=== PATIENT | male | born 1935 | race Two or more races ===

== ENCOUNTER 2017-05-07 07:27 | Inpatient (IN) | payer SELFPAY ==
[~2017-05-07] VITALS: Ht 180.3 cm; Wt 83.9 kg
[2017-05-07 07:57] LABS: BASO % 1 % (0-3); EOS % 3 % (0-3); HEMATOCRIT 44.1 % (39.0-53.0); HEMOGLOBIN 15.2 g/dL (13.0-17.5); LYMPH # 2.4 x10^3/uL (1.0-4.8); LYMPH % 32 % (24-48); MEAN CORPUSCULAR HEMOGLOBIN 32 pg (25-35); MEAN CORPUSCULAR HGB CONC 34 g/dL (31-37); MEAN CORPUSCULAR VOLUME 93 fL (79-100); MONO % 7 % (0-9); NEUT % 59 % (31-73); PLATELET COUNT 200 x10^3/uL (140-400); RED BLOOD COUNT 4.77 x10^6/uL (4.30-5.70); RED CELL DISTRIBUTION WIDTH 13.8 % (11.5-14.5); WHITE BLOOD COUNT 7.7 x10^3/uL (4.0-11.0)
--- NOTE | 2017-05-07 08:04 | EKG ---
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
[2017-05-07 08:07] LABS: GFR 71.5; POTASSIUM 3.8 mmol/L (3.5-5.1)
[2017-05-07 08:12] LABS: ALBUMIN 3.5 g/dL (3.4-5.0); ALBUMIN/GLOBULIN RATIO 0.9 (1.0-1.7); TOTAL BILIRUBIN 0.5 mg/dL (0.2-1.0); TOTAL PROTEIN 7.2 g/dL (6.4-8.2)
[2017-05-07] MEDS ORDERED: cloNIDine HCL 0.1 MG TABLET PO ONE ×2 (08:15→09:15)
--- NOTE | 2017-05-07 08:27 | RAD ---
Portable chest, 05/07/2017: History: Shortness of breath, chest pain No previous chest radiographs are available at this time for comparison purposes. The heart appears to be at the upper limits of normal in size. There is tortuosity and calcific plaquing of the thoracic aorta. The pulmonary vascularity is normal. A calcified granuloma is present in the left base. No acute infiltrates are seen. Slight blunting of the right lateral costophrenic angle is probably due to scarring or subpleural fat. A small amount of pleural fluid cannot be excluded. There is a mild thoracic scoliosis. IMPRESSION: Borderline cardiomegaly and aortic ectasia.
--- NOTE | 2017-05-07 08:34 | ED.ADGEN ---
Past Medical History Past Medical History: Hypertension Past Surgical History: Appendectomy Alcohol Use: None Drug Use: None Adult General Chief Complaint Chief Complaint: CHEST PAIN HPI HPI Patient is a 81 year old male who presents with chest pressure, mild dyspnea, nausea and headache for the past 3 days. Chest tightness and dyspnea is not worse with exertion, but does wake the patient from sleep on occasion at night. Patient reports occasional cough. Denies fevers chills, sweats. Reports increased peripheral edema. Denies leg pain history of DVT or PE. Patient is on medication for hypertension. Blood pressure is noted to be 180/100. Patient did not take his blood pressure medications this morning. No history of coronary disease. Patient is a nonsmoker. He is accompanied at bedside by family members. Review of Systems Review of Systems ROS as per HPI Current Medications Current Medications Current Medications Medications (Trade) Dose Ordered Sig/Madelin Start Time Stop Time Status Last Admin Dose Admin Clonidine HCl (Catapres) 0.2 mg 1X ONCE 05/07/17 08:15 05/07/17 08:16 DC 05/07/17 08:20 0.2 MG Allergies Allergies Allergies Coded Allergies Type Severity Reaction Last Updated Verified No Known Drug Allergies 05/07/17 No Physical Exam Physical Exam Constitutional: Well developed, well nourished, no acute distress, non-toxic appearance. HENT: Normocephalic, atraumatic, bilateral external ears normal, oropharynx moist, no oral exudates, nose normal. Eyes: PERRLA, EOM. Neck: Normal range of motion, no tenderness, supple. Cardiovascular:Heart rate regular rhythm, no murmur. Lungs & Thorax: Bilateral breath sounds clear to auscultation. Abdomen: Bowel sounds normal, soft, no tenderness. Skin: Warm, dry. Back: No tenderness, no CVA tenderness. Extremities: No tenderness. Neurologic: Alert and oriented X 3, normal motor function, normal sensory function, no focal deficits noted. Psychologic: Affect normal, judgement normal, mood normal. Current Patient Data Vital Signs Vital Signs Date Time Temp Pulse Resp B/P (MAP) Pulse Ox O2 Delivery O2 Flow Rate FiO2 05/07/17 08:20 56 153/91 05/07/17 08:00 97.9 20 96 Room Air 97.9 Lab Values Laboratory Tests Test 05/07/17 07:45 White Blood Count 7.7 x10^3/uL (4.0-11.0) Red Blood Count 4.77 x10^6/uL (4.30-5.70) Hemoglobin 15.2 g/dL (13.0-17.5) Hematocrit 44.1 % (39.0-53.0) Mean Corpuscular Volume 93 fL (79-100) Mean Corpuscular Hemoglobin 32 pg (25-35) Mean Corpuscular Hemoglobin Concent 34 g/dL (31-37) Red Cell Distribution Width 13.8 % (11.5-14.5) Platelet Count 200 x10^3/uL (140-400) Neutrophils (%) (Auto) 59 % (31-73) Lymphocytes (%) (Auto) 32 % (24-48) Monocytes (%) (Auto) 7 % (0-9) Eosinophils (%) (Auto) 3 % (0-3) Basophils (%) (Auto) 1 % (0-3) Neutrophils # (Auto) 4.5 x10^3uL (1.8-7.7) Lymphocytes # (Auto) 2.4 x10^3/uL (1.0-4.8) Monocytes # (Auto) 0.5 x10^3/uL (0.0-1.1) Eosinophils # (Auto) 0.2 x10^3/uL (0.0-0.7) Basophils # (Auto) 0.0 x10^3/uL (0.0-0.2) Sodium Level 143 mmol/L (136-145) Potassium Level 3.8 mmol/L (3.5-5.1) Chloride Level 107 mmol/L (98-107) Carbon Dioxide Level 31 mmol/L (21-32) Anion Gap 5 (6-14) L Blood Urea Nitrogen 15 mg/dL (8-26) Creatinine 1.0 mg/dL (0.7-1.3) Estimated GFR (Cockcroft-Gault) 71.5 BUN/Creatinine Ratio 15 (6-20) Glucose Level 88 mg/dL (70-99) Calcium Level 8.0 mg/dL (8.5-10.1) L Total Bilirubin 0.5 mg/dL (0.2-1.0) Aspartate Amino Transferase (AST) 24 U/L (15-37) Alanine Aminotransferase (ALT) 24 U/L (16-63) Alkaline Phosphatase 99 U/L (46-116) Total Protein 7.2 g/dL (6.4-8.2) Albumin 3.5 g/dL (3.4-5.0) Albumin/Globulin Ratio 0.9 (1.0-1.7) L Lipase 87 U/L (73-393) Laboratory Tests 05/07/17 07:45 Laboratory Tests 05/07/17 07:45 EKG EKG [EKG: Normal sinus rhythm, no acute ST-T wave changes, QTC 434.] Radiology/Procedures Radiology/Procedures [Chest x-ray: Cardiomegaly with aortic ectasia per radiology report] Course & Med Decision Making Course & Med Decision Making Pertinent Labs and Imaging studies reviewed. (See chart for details) [] Dragon Disclaimer Dragon Disclaimer This electronic medical record was generated, in whole or in part, using a voice recognition dictation system. MARII PEREZ DO May 07, 2017 08:33
[2017-05-07 08:49] LABS: BILIRUBIN,URINE NEGATIVE (NEG); GLUCOSE,URINE NEGATIVE (NEG); NITRITE,URINE NEGATIVE (NEG); PH,URINE 7.5; PROTEIN,URINE NEGATIVE (NEG-TRACE)
[2017-05-07 09:05] LABS: BACTERIA,URINE 0 /HPF (0-FEW); RBC,URINE OCC /HPF (0-2); WBC,URINE OCC /HPF (0-4)
[2017-05-07] MEDS ORDERED: fentaNYL PF VIAL 100 MCG/2 ML VIAL IV ONE (09:15)
[2017-05-07] MEDS ORDERED: ONDANSETRON PF 4 MG/2 ML VIAL. IV ONE (09:15)
[2017-05-07] MEDS ORDERED: LISINOPRIL 10 MG TABLET PO ONE (10:00)
[2017-05-07] MEDS ORDERED: ACETAMINOPHEN 500 MG TABLET PO ONE (10:15)
[2017-05-07] MEDS ORDERED: ASPIRIN CHEWABLE 81 MG TABLET. PO ONE (11:15)
--- NOTE | 2017-05-07 11:22 | RAD ---
CT of the head without contrast, 05/07/2017: History: Headache There is moderate cerebral atrophy. The ventricles are within normal limits in size. There is no shift of the midline structures. There is no evidence of acute intracranial hemorrhage or mass effect. IMPRESSION: 1. Cerebral atrophy. 2. No acute intracranial abnormality is detected. PQRS Compliance Statement: One or more of the following individualized dose reduction techniques were utilized for this examination: 1. Automated exposure control 2. Adjustment of the mA and/or kV according to patient size 3. Use of iterative reconstruction technique
--- NOTE | 2017-05-07 11:33 | PDOC1 ---
History and Physical Date of Admission Date of Admission DATE: 05/07/17 TIME: 11:31 Identification/Chief Complaint Chief Complaint CP, GARCIA, SOA, HTN, Vomitting Problems: History of Present Illness History of Present Illness Elderly male presents with CP, GARCIA, SOA, HTN, Vomitting. DW ER doc Will admit for cardiac eval Pt seen and examines Total time 32 minutes Current Problem List Problem List Problems Medical Problems: (1) Accelerated hypertension Status: Acute (2) Chest pain Status: Acute (3) Headache Status: Acute Problems: Current Medications Current Medications Current Medications Clonidine HCl (Catapres) 0.2 mg 1X ONCE PO Last administered on 05/07/17 08: 20; Start 05/07/17 at 08:15; Stop 05/07/17 at 08:16; Status DC Clonidine HCl (Catapres) 0.2 mg 1X ONCE PO ; Start 05/07/17 at 09:15; Stop at 09:16; Status DC Fentanyl Citrate (Fentanyl 2ml Vial) 50 mcg 1X ONCE IV Last administered on 09:16; Start 05/07/17 at 09:15; Stop 05/07/17 at 09:16; Status DC Ondansetron HCl (Zofran) 4 mg 1X ONCE IV Last administered on 05/07/17 09:12 ; Start 05/07/17 at 09:15; Stop 05/07/17 at 09:16; Status DC Lisinopril (Prinivil) 40 mg 1X ONCE PO Last administered on 05/07/17 10:43; Start 05/07/17 at 10:00; Stop 05/07/17 at 10:01; Status DC Acetaminophen (Tylenol) 1,000 mg 1X ONCE PO Last administered on 05/07/17 10: 42; Start 05/07/17 at 10:15; Stop 05/07/17 at 10:16; Status DC Aspirin (Children'S Aspirin) 324 mg 1X ONCE PO ; Start 05/07/17 at 11:15; Stop 05/07/17 at 11:16; Status DC Allergies Allergies: Coded Allergies: No Known Drug Allergies (Unverified , 05/07/17) Vitals Vitals Vital Signs Date Time Temp Pulse Resp B/P (MAP) Pulse Ox O2 Delivery O2 Flow Rate FiO2 05/07/17 10:43 63 141/82 05/07/17 09:16 22 96 Room Air 05/07/17 08:00 97.9 97.9 Labs Labs Laboratory Tests Test 05/07/17 07:45 05/07/17 08:35 White Blood Count 7.7 x10^3/uL (4.0-11.0) Red Blood Count 4.77 x10^6/uL (4.30-5.70) Hemoglobin 15.2 g/dL (13.0-17.5) Hematocrit 44.1 % (39.0-53.0) Mean Corpuscular Volume 93 fL (79-100) Mean Corpuscular Hemoglobin 32 pg (25-35) Mean Corpuscular Hemoglobin Concent 34 g/dL (31-37) Red Cell Distribution Width 13.8 % (11.5-14.5) Platelet Count 200 x10^3/uL (140-400) Neutrophils (%) (Auto) 59 % (31-73) Lymphocytes (%) (Auto) 32 % (24-48) Monocytes (%) (Auto) 7 % (0-9) Eosinophils (%) (Auto) 3 % (0-3) Basophils (%) (Auto) 1 % (0-3) Neutrophils # (Auto) 4.5 x10^3uL (1.8-7.7) Lymphocytes # (Auto) 2.4 x10^3/uL (1.0-4.8) Monocytes # (Auto) 0.5 x10^3/uL (0.0-1.1) Eosinophils # (Auto) 0.2 x10^3/uL (0.0-0.7) Basophils # (Auto) 0.0 x10^3/uL (0.0-0.2) Sodium Level 143 mmol/L (136-145) Potassium Level 3.8 mmol/L (3.5-5.1) Chloride Level 107 mmol/L (98-107) Carbon Dioxide Level 31 mmol/L (21-32) Anion Gap 5 (6-14) Blood Urea Nitrogen 15 mg/dL (8-26) Creatinine 1.0 mg/dL (0.7-1.3) Estimated GFR (Cockcroft-Gault) 71.5 BUN/Creatinine Ratio 15 (6-20) Glucose Level 88 mg/dL (70-99) Calcium Level 8.0 mg/dL (8.5-10.1) Total Bilirubin 0.5 mg/dL (0.2-1.0) Aspartate Amino Transf (AST/SGOT) 24 U/L (15-37) Alanine Aminotransferase (ALT/SGPT) 24 U/L (16-63) Alkaline Phosphatase 99 U/L (46-116) Troponin I Quantitative < 0.017 ng/mL (0.000-0.055) ZL-Zkt-I-Type Natriuretic Peptide 83 pg/mL (0-449) Total Protein 7.2 g/dL (6.4-8.2) Albumin 3.5 g/dL (3.4-5.0) Albumin/Globulin Ratio 0.9 (1.0-1.7) Lipase 87 U/L (73-393) Urine Collection Type Unknown Urine Color Yellow Urine Clarity Clear Urine pH 7.5 Urine Specific [place] 1.020 Urine Protein Negative mg/dL (NEG-TRACE) Urine Glucose (UA) Negative mg/dL (NEG) Urine Ketones (Stick) Negative mg/dL (NEG) Urine Blood Negative (NEG) Urine Nitrite Negative (NEG) Urine Bilirubin Negative (NEG) Urine Urobilinogen Dipstick 1.0 mg/dL (0.2 mg/dL) Urine Leukocyte Esterase Negative (NEG) Urine RBC Occ /HPF (0-2) Urine WBC Occ /HPF (0-4) Urine Bacteria 0 /HPF (0-FEW) Urine Mucus Slight /LPF Laboratory Tests Test 05/07/17 07:45 05/07/17 08:35 White Blood Count 7.7 x10^3/uL (4.0-11.0) Red Blood Count 4.77 x10^6/uL (4.30-5.70) Hemoglobin 15.2 g/dL (13.0-17.5) Hematocrit 44.1 % (39.0-53.0) Mean Corpuscular Volume 93 fL (79-100) Mean Corpuscular Hemoglobin 32 pg (25-35) Mean Corpuscular Hemoglobin Concent 34 g/dL (31-37) Red Cell Distribution Width 13.8 % (11.5-14.5) Platelet Count 200 x10^3/uL (140-400) Neutrophils (%) (Auto) 59 % (31-73) Lymphocytes (%) (Auto) 32 % (24-48) Monocytes (%) (Auto) 7 % (0-9) Eosinophils (%) (Auto) 3 % (0-3) Basophils (%) (Auto) 1 % (0-3) Neutrophils # (Auto) 4.5 x10^3uL (1.8-7.7) Lymphocytes # (Auto) 2.4 x10^3/uL (1.0-4.8) Monocytes # (Auto) 0.5 x10^3/uL (0.0-1.1) Eosinophils # (Auto) 0.2 x10^3/uL (0.0-0.7) Basophils # (Auto) 0.0 x10^3/uL (0.0-0.2) Sodium Level 143 mmol/L (136-145) Potassium Level 3.8 mmol/L (3.5-5.1) Chloride Level 107 mmol/L (98-107) Carbon Dioxide Level 31 mmol/L (21-32) Anion Gap 5 (6-14) Blood Urea Nitrogen 15 mg/dL (8-26) Creatinine 1.0 mg/dL (0.7-1.3) Estimated GFR (Cockcroft-Gault) 71.5 BUN/Creatinine Ratio 15 (6-20) Glucose Level 88 mg/dL (70-99) Calcium Level 8.0 mg/dL (8.5-10.1) Total Bilirubin 0.5 mg/dL (0.2-1.0) Aspartate Amino Transf (AST/SGOT) 24 U/L (15-37) Alanine Aminotransferase (ALT/SGPT) 24 U/L (16-63) Alkaline Phosphatase 99 U/L (46-116) Troponin I Quantitative < 0.017 ng/mL (0.000-0.055) EG-Drp-W-Type Natriuretic Peptide 83 pg/mL (0-449) Total Protein 7.2 g/dL (6.4-8.2) Albumin 3.5 g/dL (3.4-5.0) Albumin/Globulin Ratio 0.9 (1.0-1.7) Lipase 87 U/L (73-393) Urine Collection Type Unknown Urine Color Yellow Urine Clarity Clear Urine pH 7.5 Urine Specific [place] 1.020 Urine Protein Negative mg/dL (NEG-TRACE) Urine Glucose (UA) Negative mg/dL (NEG) Urine Ketones (Stick) Negative mg/dL (NEG) Urine Blood Negative (NEG) Urine Nitrite Negative (NEG) Urine Bilirubin Negative (NEG) Urine Urobilinogen Dipstick 1.0 mg/dL (0.2 mg/dL) Urine Leukocyte Esterase Negative (NEG) Urine RBC Occ /HPF (0-2) Urine WBC Occ /HPF (0-4) Urine Bacteria 0 /HPF (0-FEW) Urine Mucus Slight /LPF VTE Prophylaxis Ordered VTE Prophylaxis Devices: Yes VTE Pharmacological Prophylaxi: Yes SYL PATTEN III DO May 07, 2017 11:33
[2017-05-07 12:11] VITALS: BP 131/80
[2017-05-07] MEDS ORDERED: LISI40TA PO ×2 (13:14→15:44)
--- NOTE | 2017-05-07 14:36 | EKG ---
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
--- NOTE | 2017-05-07 14:40 | PDOC2 ---
CARDIAC CONSULT DATE OF CONSULT Date of Consult DATE: 05/07/17 TIME: 14:39 REASON FOR CONSULT Reason for Consult: Chest Pain REFERRING PHYSICIAN Referring Physician: Dr. Sanchez SOURCE Source: Chart review, Patient HISTORY OF PRESENT ILLNESS HISTORY OF PRESENT ILLNESS This is an 81 yo male who presented with complaints of shortness of breath and abdominal/chest pain. Patient reports symptoms have been ongoing intermittently over the last week. More frequent the last couple of days. Pain describes as burning. Located in his central chest and radiates down to his mid-abdominal region. Associated with nausea and "head pain." Denies any palpitations, dizziness, or diaphoresis. No LE edema or orthopnea. Feels as if he is bloated. Worsened by eating and taking a deep breath. Improved with Tylenol. History of CAD or previous cardiac workup. PAST MEDICAL HISTORY Cardiovascular: HTN Pulmonary: No pertinent hx GI: GERD Heme/Onc: No pertinent hx Hepatobiliary: No pertinent hx Psych: No pertinent hx Musculoskeletal: Osteoarthritis Rheumatologic: No pertinent hx Infectious disease: No pertinent hx ENT: No pertinent hx Renal/: No pertinent hx Endocrine: No pertinent hx Dermatology: No pertinent hx PAST SURGICAL HISTORY Past Surgical History: Appendectomy, Other FAMILY HISTORY Family History: Other (noncontributory ) SOCIAL HISTORY Smoke: <1 pack per day ALCOHOL: none Drugs: None Lives: with Family CURRENT MEDICATIONS CURRENT MEDICATIONS Current Medications Medications (Trade) Dose Ordered Sig/Madelin Route PRN Reason Start Time Stop Time Status Last Admin Dose Admin Clonidine HCl (Catapres) 0.2 mg 1X ONCE PO 05/07/17 08:15 05/07/17 08:16 DC 05/07/17 08:20 Fentanyl Citrate (Fentanyl 2ml Vial) 50 mcg 1X ONCE IV 05/07/17 09:15 05/07/17 09:16 DC 05/07/17 09:16 Ondansetron HCl (Zofran) 4 mg 1X ONCE IV 05/07/17 09:15 05/07/17 09:16 DC 05/07/17 09:12 Lisinopril (Prinivil) 40 mg 1X ONCE PO 05/07/17 10:00 05/07/17 10:01 DC 05/07/17 10:43 Acetaminophen (Tylenol) 1,000 mg 1X ONCE PO 05/07/17 10:15 05/07/17 10:16 DC 05/07/17 10:42 Aspirin (Children'S Aspirin) 324 mg 1X ONCE PO 05/07/17 11:15 05/07/17 11:16 DC 05/07/17 12:10 ALLERGIES ALLERGIES: Coded Allergies: No Known Drug Allergies (Unverified , 05/07/17) ROS Review of System 14 point ROS conducted with pertinent positives noted above in HPI PHYSICAL EXAM General: Alert, Oriented X3, Cooperative, No acute distress HEENT: Atraumatic, Mucous membr. moist/pink Lungs: Clear to auscultation, Normal air movement Heart: Regular rate, Normal S1, Normal S2, No murmurs Abdomen: Soft, No tenderness Extremities: No edema, Normal pulses Skin: No significant lesion Neuro: Normal speech, Sensation intact Psych/Mental Status: Mental status NL, Mood NL MUSCULOSKELETAL: Osteoarthritic changes both hands VITALS VITALS Vital Signs Date Time Temp Pulse Resp B/P (MAP) Pulse Ox O2 Delivery O2 Flow Rate FiO2 05/07/17 12:30 50 16 118/78 (91) 96 Room Air 05/07/17 08:00 97.9 97.9 LABS Lab: Laboratory Tests Test 05/07/17 07:45 05/07/17 08:35 White Blood Count 7.7 x10^3/uL (4.0-11.0) Red Blood Count 4.77 x10^6/uL (4.30-5.70) Hemoglobin 15.2 g/dL (13.0-17.5) Hematocrit 44.1 % (39.0-53.0) Mean Corpuscular Volume 93 fL (79-100) Mean Corpuscular Hemoglobin 32 pg (25-35) Mean Corpuscular Hemoglobin Concent 34 g/dL (31-37) Red Cell Distribution Width 13.8 % (11.5-14.5) Platelet Count 200 x10^3/uL (140-400) Neutrophils (%) (Auto) 59 % (31-73) Lymphocytes (%) (Auto) 32 % (24-48) Monocytes (%) (Auto) 7 % (0-9) Eosinophils (%) (Auto) 3 % (0-3) Basophils (%) (Auto) 1 % (0-3) Neutrophils # (Auto) 4.5 x10^3uL (1.8-7.7) Lymphocytes # (Auto) 2.4 x10^3/uL (1.0-4.8) Monocytes # (Auto) 0.5 x10^3/uL (0.0-1.1) Eosinophils # (Auto) 0.2 x10^3/uL (0.0-0.7) Basophils # (Auto) 0.0 x10^3/uL (0.0-0.2) Sodium Level 143 mmol/L (136-145) Potassium Level 3.8 mmol/L (3.5-5.1) Chloride Level 107 mmol/L (98-107) Carbon Dioxide Level 31 mmol/L (21-32) Anion Gap 5 (6-14) Blood Urea Nitrogen 15 mg/dL (8-26) Creatinine 1.0 mg/dL (0.7-1.3) Estimated GFR (Cockcroft-Gault) 71.5 BUN/Creatinine Ratio 15 (6-20) Glucose Level 88 mg/dL (70-99) Calcium Level 8.0 mg/dL (8.5-10.1) Total Bilirubin 0.5 mg/dL (0.2-1.0) Aspartate Amino Transf (AST/SGOT) 24 U/L (15-37) Alanine Aminotransferase (ALT/SGPT) 24 U/L (16-63) Alkaline Phosphatase 99 U/L (46-116) Troponin I Quantitative < 0.017 ng/mL (0.000-0.055) SZ-Vlk-S-Type Natriuretic Peptide 83 pg/mL (0-449) Total Protein 7.2 g/dL (6.4-8.2) Albumin 3.5 g/dL (3.4-5.0) Albumin/Globulin Ratio 0.9 (1.0-1.7) Lipase 87 U/L (73-393) Urine Collection Type Unknown Urine Color Yellow Urine Clarity Clear Urine pH 7.5 Urine Specific [place] 1.020 Urine Protein Negative mg/dL (NEG-TRACE) Urine Glucose (UA) Negative mg/dL (NEG) Urine Ketones (Stick) Negative mg/dL (NEG) Urine Blood Negative (NEG) Urine Nitrite Negative (NEG) Urine Bilirubin Negative (NEG) Urine Urobilinogen Dipstick 1.0 mg/dL (0.2 mg/dL) Urine Leukocyte Esterase Negative (NEG) Urine RBC Occ /HPF (0-2) Urine WBC Occ /HPF (0-4) Urine Bacteria 0 /HPF (0-FEW) Urine Mucus Slight /LPF ASSESSMENT/PLAN ASSESSMENT/PLAN 1. Chest pain, atypical. Initial troponin negative. 2. Dyspnea; NT Pro BNP normal. CXR without vascular congestion. Not consistent with acute CHF 3. Hypertension; now controlled 4. Sinus bradycardia. asymptomatic 5. GERD 6. Tobaccoism Recommendations Trend troponin. Check lipids Monitor telemetry overnight. Avoid AV lila blocking agents Discussed/encouraged smoking cessation. Pain very atypical and most probably GI in nature but given risk factors, will proceed with MPI in am to r/o ischemic etiology. NPO after MN. Problems: NIDHI PARSON APRN May 07, 2017 14:40
[2017-05-07 15:00] VITALS: BP 117/80
[2017-05-07 19:54] VITALS: BP 116/80
[2017-05-07] MEDS: MORPHINE SULFATE 2 MG/ML DISP.SYRIN. IV PRN (19:56)
[2017-05-07 23:31] VITALS: BP 116/71
[2017-05-08] MEDS: MORPHINE SULFATE 2 MG/ML DISP.SYRIN. IV PRN ×2 (00:16→07:32)
[2017-05-08] MEDS: ONDANSETRON PF 4 MG/2 ML VIAL. IV PRN ×3 (03:18→18:38)
[2017-05-08 06:05] LABS: BASO % 0 % (0-3); EOS % 1 % (0-3); HEMATOCRIT 40.7 % (39.0-53.0); HEMOGLOBIN 14.5 g/dL (13.0-17.5); LYMPH # 1.7 x10^3/uL (1.0-4.8); LYMPH % 21 % (24-48); MEAN CORPUSCULAR HEMOGLOBIN 32 pg (25-35); MEAN CORPUSCULAR HGB CONC 36 g/dL (31-37); MEAN CORPUSCULAR VOLUME 91 fL (79-100); MONO % 4 % (0-9); NEUT % 73 % (31-73); PLATELET COUNT 195 x10^3/uL (140-400); RED BLOOD COUNT 4.48 x10^6/uL (4.30-5.70); WHITE BLOOD COUNT 8.3 x10^3/uL (4.0-11.0)
--- NOTE | 2017-05-08 06:18 | ACF ---
Admission Forms Criteria CARDIOLOGY GRG Clinical Indications for Admission to Inpatient Care ( Place 'X' for any and all applicable criteria): Hospital admission is needed for appropriate care of the patient because of ANY ONE of the following (1): [ ] I. Hemodynamic instability as indicated by ALL of the following (1)(2)(3) (4)(5) [ ]a) Vital signs or other findings not as expected for chronic patient condition or baseline [ ]b) Instability indicated by ANY ONE of the following: [ ]i) Hypotension [ ]ii) Symptomatic Tachycardia unresponsive to treatment ( e.g., analgesia, fluids, sedation as indicated) [ ]iii) Inadequate perfusion indicated by ANY ONE of the following: [ ] 1) Lactic acidosis (> 2 mmol/L) [ ] 2) New abnormal capillary refill (> 3 seconds) [ ] 3) Reduced urine output [ ] 4) New altered mental status [ ]iv) Orthostatic vital sign changes unresponsive to treatment (e.g., fluids) [ ]v) IV inotropic or vasopressor medication required to maintain adequate blood pressure or perfusion [ ] II. Severe heart failure as indicated by ANY ONE of the following(17)(18) [ ]a) Respiratory distress [ ]b) Hypotension [ ]c) Anasarca (refractory to outpatient therapy) [ ]d) Cardiac arrhythmias of immediate concern [ ]e) Myocardial ischemia [ ] III. Cardiac arrhythmias or findings of immediate concern indicated by ANY ONE of the following (19)(20): [ ] a) Heart rhythms that are inherently dangerous or unstable indicated by ANY ONE of the following (21)(22)(23): [ ] i) Resuscitated ventricular fibrillation or cardiac arrest [ ] ii) Ventricular escape rhythm [ ] iii) Sustained ventricular tachycardia (30 seconds or more of ventricular rhythm at greater than 100 beats per minute) [ ] iv) Nonsustained ventricular tachycardia and ANY ONE of the following: [ ] 1) Suspected cardiac ischemia as cause or consequence of ventricular tachycardia [ ] 2) In setting of acute myocarditis [ ] b) Unstable cardiac conduction defects indicated by ANY ONE of the following(23)(24)(25) [ ] i) Type II second-degree atrioventricular block [ ]ii) Third-degree atrioventricular block [ ]iii) New-onset left bundle branch block with suspected myocardial ischemia [ ]c) Any heart rhythm and ANY ONE of the following (21)(22)(26)(27) (28) [ ] i) Continuous long-term ECG monitoring needed (e.g., initiation of drug requiring monitoring for more than 24 hours) [ ] ii) Patient has automatic implanted cardioverter defibrillator that is repeatedly firing, malfunctioning, or in need of immediate adjustment of settings beyond the scope of ambulatory or observation care [ ]d) Heart rhythms of concern due to ANY ONE of the following: [ ] i) Hypotension [ ] ii) Respiratory distress [ ] iii) Association with other significant symptoms (e.g., bradycardia with syncope or ongoing dizziness, supraventricular tachycardia with chest pain (14)(15)(17) [ ] IV. Monitoring for cardiac contusion beyond the scope of observation care needed [A](30)(31)(32) [ ] V. Surgical or device complication (e.g., valve replacement complication , pacemaker dysfunction) (35)(41)(44)(45)(46) [ ] . Inpatient palliative care needed. [B](49) Also use Inpatient Palliative Care Criteria [ ] VII. Nonbacterial thrombotic (marantic) endocarditis (36)(43)(47)(48) [X] VIII. Cardiology condition, symptom, or finding for which emergency and observation care has failed or are not considered appropriate. [ ] IX. Acute valvular disease requiring inpatient as indicated by ANY ONE of the following (41) [ ]a) Acute valvular regurgitation (42) [ ]b) Noninfectious valvulitis (43) [ ]c) Obstructive valve thrombosis [ ]d) Paravalvular leak [ ]e) Other significant valvular disorder remaining after emergency or observation level of care (as appropriate) [ ]X. Pericardial disease requiring inpatient treatment as indicated by ANY ONE of the following (33)(34)(35)(36)(37) [ ]a) Suspected tamponade (38)(39)(40) [ ]b) Hemopericardium [ ]c) Other significant pericardial disorder remaining after emergency or observation level of care (as appropriate) [ ] XI. Cardiac ischemia beyond scope of emergency and observation care. [ ] XII. Hypertension requiring inpatient treatment as indicated by ANY ONE of the following (6)(7)(8) [ ]a) SBP greater than 220 mm Hg or DBP greater than 120 mmHg despite treatment [ ]b) SBP greater than 140 mm Hg or DBP greater than 100 mm Hg with evidence of acute end organ damage as indicated by ANY ONE of the following [ ] i) Encephalopathy [ ] ii) Acute renal failure as indicated by new onset of ANY ONE of the following (9)(10)(11)(12)(13) [ ]1) 3-fold rise in serum creatinine from baseline [ ]2) Serum creatinine greater than 4 mg/dL ( 354 micromoles/L) with acute rise greater than 0.5 mg/dL (44.2 micromoles/L) [ ]3) Reduction of more than 75% in estimated glomerular filtration rate from baseline [ ]4) Estimated glomerular filtration rate less than 35 mL/min/1.73m2 (0.59 mL/sec/1.73m2) in child up to 18 years of age [ ]5) Cessation of urine output indicated by ALL of the following [ ]A. Adequate volume status [ ]B. Inadequate urine output as indicated by ANY ONE of the following [ ]a. Urine output less than 0.3 mL/kg/hr for 24 hours [ ]b. Anuria (urine output less than 0.1 mL/kg/hr) for 12 hours [ ] iii) Aortic dissection [ ] iv) Myocardial Ischemia [ ] v) Left ventricular heart failure [ ]vi) Retinal Hemorrhage [ ]vii) Other significant finding [ ]c) Hypertension in child requiring inpatient treatment as indicated by ALL of the following(14)(15)(16) [ ] i) Outpatient treatment not effective, not available, or not appropriate [ ]ii) SBP or DBP greater than 95th percentile for age [ ]iii) Evidence of acute end organ damage as indicated by ANY ONE of the following [ ]1) Altered mental status [ ]2) Acute renal failure as indicated by new onset of ANY ONE of the following(9)(10)(11)(12)(13) [ ]A. 3-fold rise in serum creatinine from baseline [ ]B. Serum creatinine greater than 4 mg/dL (354 micromoles/L) with acute rise greater than 0.5 mg/dL (44.2 micromoles/L) [ ]C. Reduction of more than 75% in estimated glomerular filtration rate from baseline [ ]D. Estimated glomerular filtration rate less than 35 mL/min/1.73m2 (0.59 mL/sec/1.73m2) in child up to 18 years of age [ ]E. Cessation of urine output indicated by ALL of the following [ ]a. Adequate volume status [ ]b. Inadequate urine output as indicated by ANY ONE of the following [ ]i) Urine output less than 0.3 mL/kg/hr for 24 hours [ ]ii) Anuria ( urine output less than 0.1 mL/kg/hr) for 12 hours [ ]3) Severe headache [ ]4) Visual disturbance [ ]5) Retinal hemorrhage [ ]6) Other significant finding [ ]XIII. Complications of transplanted heart indicated by ANY ONE of the following(61): [ ]a) Acute graft rejection requiring inpatient management (eg, intravenous immunosuppression)(62)(63) [ ]b) Acute graft heart failure indicated by ANY ONE of the following(64): [ ]i) Hemodynamic instability [ ]ii) Cardiac arrhythmias of immediate concern [ ]iii) Pulmonary edema that is very severe (eg, mechanical ventilation needed, imminent or likely, need for 100% oxygen to keep oxygen saturation above 90%) [ ]iv) Pulmonary edema that is persistent as indicated by ALL of the following: [ ]1) New need for oxygen therapy to keep oxygen saturation above 90% (or increased FiO2 need from baseline) [ ]2) Has not improved sufficiently with emergency department or observation care IV diuretics or other heart failure treatments[E] [ ]v) Altered mental status that is severe or persistent [ ]vi) Increased creatinine (new on laboratory test) with reduction of more than 50% in estimated glomerular filtration rate from baseline [ ]vii) Progressively (ongoing) rising creatinine (known from past laboratory test) with reduction of more than 25% in estimated glomerular filtration rate from baseline [ ]viii) Acute renal failure [ ]ix) Acute peripheral ischemia (eg, examination shows pulseless, cool, mottled, or cyanotic extremity) [ ]x) Pulmonary artery catheter monitoring needed [ ]xi) Other sign or symptom of heart failure requiring inpatient treatment (ie, too severe or not responsive to outpatient and observation care treatment) [ ]c) Infection requiring inpatient management (eg, Hemodynamic instability, need for intravenous antimicrobial treatment)(66)(67)(68)(69)(70) [ ]d) Cardiac allograft vasculopathy requiring inpatient management ( eg evidence of cardiac ischemia)(71) [ ]e) Other complication of transplanted heart (eg, stroke, severe pulmonary hypertension, severe valvular dysfunction) requiring inpatient management(72) The original [facility] content created by [facility] has been revised. The portions of the content which have been revised are identified through the use of italic text or in bold, and [facility] has neither reviewed nor approved the modified material. All other unmodified content is copyright [facility]. Please see references footnoted in the original [facility] edition 2016 Admission Criteria Met?: Yes RHIANNON LYNN May 08, 2017 06:18
[2017-05-08 06:26] LABS: CALCIUM 8.3 mg/dL (8.5-10.1); CREATININE 0.9 mg/dL (0.7-1.3); GFR 80.8
[2017-05-08 07:05] VITALS: BP 144/95
[2017-05-08] MEDS ORDERED: REGADENOSON 0.4 MG/5 ML DISP.SYRIN. IV ONE (09:00)
[2017-05-08 11:04] VITALS: BP 107/52
[2017-05-08] MEDS ORDERED: PROCHLORPERAZINE 10 MG/2 ML VIAL. IV ONE (12:15)
--- NOTE | 2017-05-08 12:23 | PDOC ---
PROGRESS NOTES Chief Complaint Chief Complaint 1. RT sided CP 2 persistent emesis 3. HTN History of Present Illness History of Present Illness ADmitted for CP FOr second part of MPI BUt pt CONTINUES to vomit Bucket at bedside MInimal faroese, family translates REad CArds note - Agree with possible gI etiology PLAN: COnsult GI Add PPI IV Start IVF Add compazine and phenergan Check acute gI series r.o obstrxn for now Follow GI recs REsume home lisinopril PRn for bP excursions Dw RN and family NPO for now Vitals Vitals Vital Signs Date Time Temp Pulse Resp B/P (MAP) Pulse Ox O2 Delivery O2 Flow Rate FiO2 05/08/17 12:09 90 Room Air 05/08/17 11:04 98.1 79 19 107/52 (70) 98.1 Physical Exam General: Alert, Oriented X3, Cooperative, No acute distress Heart: Regular rate, Normal S1, Normal S2, No murmurs Abdomen: Soft, No tenderness Extremities: No edema, Normal pulses Skin: No significant lesion Labs LABS Laboratory Tests Test 05/08/17 04:45 White Blood Count 8.3 x10^3/uL (4.0-11.0) Red Blood Count 4.48 x10^6/uL (4.30-5.70) Hemoglobin 14.5 g/dL (13.0-17.5) Hematocrit 40.7 % (39.0-53.0) Mean Corpuscular Volume 91 fL (79-100) Mean Corpuscular Hemoglobin 32 pg (25-35) Mean Corpuscular Hemoglobin Concent 36 g/dL (31-37) Red Cell Distribution Width 14.0 % (11.5-14.5) Platelet Count 195 x10^3/uL (140-400) Neutrophils (%) (Auto) 73 % (31-73) Lymphocytes (%) (Auto) 21 % (24-48) Monocytes (%) (Auto) 4 % (0-9) Eosinophils (%) (Auto) 1 % (0-3) Basophils (%) (Auto) 0 % (0-3) Neutrophils # (Auto) 6.1 x10^3uL (1.8-7.7) Lymphocytes # (Auto) 1.7 x10^3/uL (1.0-4.8) Monocytes # (Auto) 0.4 x10^3/uL (0.0-1.1) Eosinophils # (Auto) 0.1 x10^3/uL (0.0-0.7) Basophils # (Auto) 0.0 x10^3/uL (0.0-0.2) Sodium Level 142 mmol/L (136-145) Potassium Level 4.0 mmol/L (3.5-5.1) Chloride Level 107 mmol/L (98-107) Carbon Dioxide Level 26 mmol/L (21-32) Anion Gap 9 (6-14) Blood Urea Nitrogen 11 mg/dL (8-26) Creatinine 0.9 mg/dL (0.7-1.3) Estimated GFR (Cockcroft-Gault) 80.8 Glucose Level 85 mg/dL (70-99) Calcium Level 8.3 mg/dL (8.5-10.1) Review of Systems Review of Systems minimal faroese Assessment and Plan Assessmemt and Plan Problems Medical Problems: (1) Accelerated hypertension Status: Acute (2) Chest pain Status: Acute (3) Headache Status: Acute Problems: Comment Review of Relevant I have reviewed the following items coco (where applicable) has been applied. Labs Laboratory Tests Test 05/07/17 07:45 05/07/17 08:35 05/08/17 04:45 White Blood Count 7.7 x10^3/uL (4.0-11.0) 8.3 x10^3/uL (4.0-11.0) Red Blood Count 4.77 x10^6/uL (4.30-5.70) 4.48 x10^6/uL (4.30-5.70) Hemoglobin 15.2 g/dL (13.0-17.5) 14.5 g/dL (13.0-17.5) Hematocrit 44.1 % (39.0-53.0) 40.7 % (39.0-53.0) Mean Corpuscular Volume 93 fL (79-100) 91 fL (79-100) Mean Corpuscular Hemoglobin 32 pg (25-35) 32 pg (25-35) Mean Corpuscular Hemoglobin Concent 34 g/dL (31-37) 36 g/dL (31-37) Red Cell Distribution Width 13.8 % (11.5-14.5) 14.0 % (11.5-14.5) Platelet Count 200 x10^3/uL (140-400) 195 x10^3/uL (140-400) Neutrophils (%) (Auto) 59 % (31-73) 73 % (31-73) Lymphocytes (%) (Auto) 32 % (24-48) 21 % (24-48) Monocytes (%) (Auto) 7 % (0-9) 4 % (0-9) Eosinophils (%) (Auto) 3 % (0-3) 1 % (0-3) Basophils (%) (Auto) 1 % (0-3) 0 % (0-3) Neutrophils # (Auto) 4.5 x10^3uL (1.8-7.7) 6.1 x10^3uL (1.8-7.7) Lymphocytes # (Auto) 2.4 x10^3/uL (1.0-4.8) 1.7 x10^3/uL (1.0-4.8) Monocytes # (Auto) 0.5 x10^3/uL (0.0-1.1) 0.4 x10^3/uL (0.0-1.1) Eosinophils # (Auto) 0.2 x10^3/uL (0.0-0.7) 0.1 x10^3/uL (0.0-0.7) Basophils # (Auto) 0.0 x10^3/uL (0.0-0.2) 0.0 x10^3/uL (0.0-0.2) Sodium Level 143 mmol/L (136-145) 142 mmol/L (136-145) Potassium Level 3.8 mmol/L (3.5-5.1) 4.0 mmol/L (3.5-5.1) Chloride Level 107 mmol/L (98-107) 107 mmol/L (98-107) Carbon Dioxide Level 31 mmol/L (21-32) 26 mmol/L (21-32) Anion Gap 5 (6-14) 9 (6-14) Blood Urea Nitrogen 15 mg/dL (8-26) 11 mg/dL (8-26) Creatinine 1.0 mg/dL (0.7-1.3) 0.9 mg/dL (0.7-1.3) Estimated GFR (Cockcroft-Gault) 71.5 80.8 BUN/Creatinine Ratio 15 (6-20) Glucose Level 88 mg/dL (70-99) 85 mg/dL (70-99) Calcium Level 8.0 mg/dL (8.5-10.1) 8.3 mg/dL (8.5-10.1) Total Bilirubin 0.5 mg/dL (0.2-1.0) Aspartate Amino Transf (AST/SGOT) 24 U/L (15-37) Alanine Aminotransferase (ALT/SGPT) 24 U/L (16-63) Alkaline Phosphatase 99 U/L (46-116) Troponin I Quantitative < 0.017 ng/mL (0.000-0.055) XR-Rpp-Y-Type Natriuretic Peptide 83 pg/mL (0-449) Total Protein 7.2 g/dL (6.4-8.2) Albumin 3.5 g/dL (3.4-5.0) Albumin/Globulin Ratio 0.9 (1.0-1.7) Lipase 87 U/L (73-393) Urine Collection Type Unknown Urine Color Yellow Urine Clarity Clear Urine pH 7.5 Urine Specific [place] 1.020 Urine Protein Negative mg/dL (NEG-TRACE) Urine Glucose (UA) Negative mg/dL (NEG) Urine Ketones (Stick) Negative mg/dL (NEG) Urine Blood Negative (NEG) Urine Nitrite Negative (NEG) Urine Bilirubin Negative (NEG) Urine Urobilinogen Dipstick 1.0 mg/dL (0.2 mg/dL) Urine Leukocyte Esterase Negative (NEG) Urine RBC Occ /HPF (0-2) Urine WBC Occ /HPF (0-4) Urine Bacteria 0 /HPF (0-FEW) Urine Mucus Slight /LPF Laboratory Tests Test 05/08/17 04:45 White Blood Count 8.3 x10^3/uL (4.0-11.0) Red Blood Count 4.48 x10^6/uL (4.30-5.70) Hemoglobin 14.5 g/dL (13.0-17.5) Hematocrit 40.7 % (39.0-53.0) Mean Corpuscular Volume 91 fL (79-100) Mean Corpuscular Hemoglobin 32 pg (25-35) Mean Corpuscular Hemoglobin Concent 36 g/dL (31-37) Red Cell Distribution Width 14.0 % (11.5-14.5) Platelet Count 195 x10^3/uL (140-400) Neutrophils (%) (Auto) 73 % (31-73) Lymphocytes (%) (Auto) 21 % (24-48) Monocytes (%) (Auto) 4 % (0-9) Eosinophils (%) (Auto) 1 % (0-3) Basophils (%) (Auto) 0 % (0-3) Neutrophils # (Auto) 6.1 x10^3uL (1.8-7.7) Lymphocytes # (Auto) 1.7 x10^3/uL (1.0-4.8) Monocytes # (Auto) 0.4 x10^3/uL (0.0-1.1) Eosinophils # (Auto) 0.1 x10^3/uL (0.0-0.7) Basophils # (Auto) 0.0 x10^3/uL (0.0-0.2) Sodium Level 142 mmol/L (136-145) Potassium Level 4.0 mmol/L (3.5-5.1) Chloride Level 107 mmol/L (98-107) Carbon Dioxide Level 26 mmol/L (21-32) Anion Gap 9 (6-14) Blood Urea Nitrogen 11 mg/dL (8-26) Creatinine 0.9 mg/dL (0.7-1.3) Estimated GFR (Cockcroft-Gault) 80.8 Glucose Level 85 mg/dL (70-99) Calcium Level 8.3 mg/dL (8.5-10.1) Medications Current Medications Clonidine HCl (Catapres) 0.2 mg 1X ONCE PO Last administered on 05/07/17 08: 20; Start 05/07/17 at 08:15; Stop 05/07/17 at 08:16; Status DC Clonidine HCl (Catapres) 0.2 mg 1X ONCE PO ; Start 05/07/17 at 09:15; Stop at 09:16; Status DC Fentanyl Citrate (Fentanyl 2ml Vial) 50 mcg 1X ONCE IV Last administered on 09:16; Start 05/07/17 at 09:15; Stop 05/07/17 at 09:16; Status DC Ondansetron HCl (Zofran) 4 mg 1X ONCE IV Last administered on 05/07/17 09:12 ; Start 05/07/17 at 09:15; Stop 05/07/17 at 09:16; Status DC Lisinopril (Prinivil) 40 mg 1X ONCE PO Last administered on 05/07/17 10:43; Start 05/07/17 at 10:00; Stop 05/07/17 at 10:01; Status DC Acetaminophen (Tylenol) 1,000 mg 1X ONCE PO Last administered on 05/07/17 10: 42; Start 05/07/17 at 10:15; Stop 05/07/17 at 10:16; Status DC Aspirin (Children'S Aspirin) 324 mg 1X ONCE PO Last administered on 05/07/17 12:10; Start 05/07/17 at 11:15; Stop 05/07/17 at 11:16; Status DC Morphine Sulfate 2 mg PRN Q2HR PRN IV PAIN Last administered on 05/08/17 07:32 ; Start 05/07/17 at 16:00 Ondansetron HCl (Zofran) 4 mg PRN Q6HRS PRN IV NAUSEA/VOMITING Last administered on 05/08/17 07:59; Start 05/08/17 at 01:30 Lisinopril (Prinivil) 40 mg DAILY PO ; Start 05/08/17 at 09:00 Regadenoson (Lexiscan) 0.4 mg 1X ONCE IV Last administered on 05/08/17 09:38 ; Start 05/08/17 at 09:00; Stop 05/08/17 at 09:01; Status DC Prochlorperazine Edisylate (Compazine) 10 mg 1X ONCE IV ; Start 05/08/17 at 12: 15; Stop 05/08/17 at 12:16; Status DC Prochlorperazine Edisylate (Compazine) 10 mg PRN Q6HRS PRN IV NAUSEA/VOMITING; Start 05/08/17 at 12:30; Status UNV Famotidine (Pepcid) 20 mg BID IVP ; Start 05/08/17 at 21:00; Status UNV Multi-Ingredient Mouthwash/Gargle (Gi Cocktail Single Dose) 15 ml 1X ONCE SWSW ; Start 05/08/17 at 12:30; Stop 05/08/17 at 12:31; Status UNV Active Scripts Active Reported Lisinopril 40 Mg Tablet 1 Tab PO DAILY Lisinopril 40 Mg Tablet 1 Tab PO DAILY Vitals/I & O Vital Sign - Last 24 Hours 05/07/17 05/07/17 05/07/17 05/07/17 12:30 15:00 19:54 19:56 Temp 97.3 97.8 97.3 97.8 Pulse 50 56 55 Resp 16 18 16 B/P (MAP) 118/78 (91) 117/80 (92) 116/80 (92) Pulse Ox 96 96 95 96 O2 Delivery Room Air Room Air Room Air Room Air 05/07/17 05/07/17 05/08/17 05/08/17 20:00 23:31 00:16 00:46 Temp 98.2 98.2 Pulse 65 Resp 16 18 B/P (MAP) 116/71 (86) Pulse Ox 98 98 O2 Delivery Room Air Room Air Room Air 05/08/17 05/08/17 05/08/17 05/08/17 07:05 07:32 11:04 12:09 Temp 97.4 98.1 97.4 98.1 Pulse 51 79 Resp 18 19 B/P (MAP) 144/95 (111) 107/52 (70) Pulse Ox 96 98 90 90 O2 Delivery Room Air Room Air Room Air Room Air Intake and Output 05/07/17 05/07/17 05/08/17 15:00 23:00 07:00 Intake Total 0 ml 300 ml Output Total 2 ml Balance 0 ml 298 ml GUERITA GARCIA MD May 08, 2017 12:23
[2017-05-08] MEDS ORDERED: LIDO:MAALOX:DONNATAL 1:1:1 15 ML SINGLE DOSE SWSW ONE (12:30)
[2017-05-08] MEDS ORDERED: PROMETHAZINE 12.5 MG in IV NORMAL SALINE 50ML 50 ML IV PRN (12:30)
[2017-05-08] MEDS: FAMOTIDINE 20 MG/2 ML VIAL IVP SCH ×2 (12:31→21:20)
[2017-05-08] MEDS: IV 1/2 NORMAL SALINE 1,000 ML IV SCH (12:36)
--- NOTE | 2017-05-08 13:52 | PDOC2 ---
GI CONSULT Reason For Consult: N/v HPI: HPI: 81 y/o [place]-speaking male, some translation help from family members, history still difficult w/ communication barrier. A few days of abdominal and chest pain (other notes suggest "burning," he's unable to qualify to me) w/ headache and dizziness. Admitted 05/07, cardiology evaluation w/ stress test in progress. Unclear if still has chest or head pain, but does describe some ongoing periumbilical pain "like a knot," feels bloated, indicates pain begins in abdomen and radiates upwards. Vomiting last night and multiple times today, RN notes after attempted eating and after morphine administration. Feels like room is spinning. H/o reflux most bothersome after eating lev, tomatoes, and spicy foods. Has been on ranitidine, unclear how effective this is. No diarrhea or constipation. No hematemesis, melena, hematochezia. Prior to sudden onset of symptoms was eating normally, no weight loss. Takes Tylenol, no NSAIDs. No previous EGD or colonoscopy. On IV H2 wanda, also has Phenergan, Compazine, and Zofran PRN. Acute abd series ordered. PMH: PMH: HTN, GERD, OA, appendectomy FH: Family History: No pertinent hx Social History: Smoke: <1 pack per day ALCOHOL: none Drugs: None ROS: GEN: Denies fevers, chills, sweats HEENT: Denies blurred vision, sore throat CV: +chest pain RESP: +shortness of air GI: Per HPI : Denies hematuria, dysuria ENDO: Denies weight changes NEURO: +dizziness MSK: Denies weakness, joint pain/swelling SKIN: Denies jaundice, pruritus Vitals: Vitals: Vital Signs Date Time Temp Pulse Resp B/P (MAP) Pulse Ox O2 Delivery O2 Flow Rate FiO2 05/08/17 12:09 90 Room Air 05/08/17 11:04 98.1 79 19 107/52 (70) 98.1 Labs: Labs: Laboratory Tests Test 05/08/17 04:45 White Blood Count 8.3 x10^3/uL (4.0-11.0) Red Blood Count 4.48 x10^6/uL (4.30-5.70) Hemoglobin 14.5 g/dL (13.0-17.5) Hematocrit 40.7 % (39.0-53.0) Mean Corpuscular Volume 91 fL (79-100) Mean Corpuscular Hemoglobin 32 pg (25-35) Mean Corpuscular Hemoglobin Concent 36 g/dL (31-37) Red Cell Distribution Width 14.0 % (11.5-14.5) Platelet Count 195 x10^3/uL (140-400) Neutrophils (%) (Auto) 73 % (31-73) Lymphocytes (%) (Auto) 21 % (24-48) Monocytes (%) (Auto) 4 % (0-9) Eosinophils (%) (Auto) 1 % (0-3) Basophils (%) (Auto) 0 % (0-3) Neutrophils # (Auto) 6.1 x10^3uL (1.8-7.7) Lymphocytes # (Auto) 1.7 x10^3/uL (1.0-4.8) Monocytes # (Auto) 0.4 x10^3/uL (0.0-1.1) Eosinophils # (Auto) 0.1 x10^3/uL (0.0-0.7) Basophils # (Auto) 0.0 x10^3/uL (0.0-0.2) Sodium Level 142 mmol/L (136-145) Potassium Level 4.0 mmol/L (3.5-5.1) Chloride Level 107 mmol/L (98-107) Carbon Dioxide Level 26 mmol/L (21-32) Anion Gap 9 (6-14) Blood Urea Nitrogen 11 mg/dL (8-26) Creatinine 0.9 mg/dL (0.7-1.3) Estimated GFR (Cockcroft-Gault) 80.8 Glucose Level 85 mg/dL (70-99) Calcium Level 8.3 mg/dL (8.5-10.1) Allergies: Coded Allergies: No Known Drug Allergies (Unverified , 05/07/17) Medications: Current Medications Medications (Trade) Dose Ordered Sig/Madelin Route PRN Reason Start Time Stop Time Status Last Admin Dose Admin Morphine Sulfate 2 mg PRN Q2HR PRN IV PAIN 05/07/17 16:00 05/08/17 07:32 Ondansetron HCl (Zofran) 4 mg PRN Q6HRS PRN IV NAUSEA/VOMITING 05/08/17 01:30 05/08/17 07:59 Regadenoson (Lexiscan) 0.4 mg 1X ONCE IV 05/08/17 09:00 05/08/17 09:01 DC 05/08/17 09:38 Prochlorperazine Edisylate (Compazine) 10 mg 1X ONCE IV 05/08/17 12:15 05/08/17 12:16 DC 05/08/17 12:30 Famotidine (Pepcid) 20 mg BID IVP 05/08/17 13:00 05/08/17 12:31 Sodium Chloride 1,000 ml @ 75 mls/hr [id number] IV 05/08/17 12:30 05/08/17 12:36 Imaging: Imaging: CXR IMPRESSION: Borderline cardiomegaly and aortic ectasia. Head CT 05/07/17 IMPRESSION: 1. Cerebral atrophy. 2. No acute intracranial abnormality is detected. MPI 05/08/17 PENDING PE: GEN: looks ill HEENT: Atraumatic, PERRL LUNGS: clear anteriorly HEART: RRR ABD: BS+, periumbilical tenderness EXTREMITY: No edema SKIN: No rashes, no jaundice NEURO/PSYCH: A & O 3 A/P: A/P: Chest/periumbilical pain, vomiting, headache, dizziness -onset several days ago -cardiology following, stress test pending -today describes periumbilical "knot," has had significant vomiting, feels like room spinning GERD -h/o reflux on ranitidine at home CRC screen -no previous colonoscopy -- Await stress test and acute abd series. Continue H2 wanda. ?vertigo component D/w Dr. Mello - will order chest CT chest, abd, pelvis. Outpt EGD and colonoscopy. ALEXIA ADAMSON May 08, 2017 13:52
[2017-05-08 15:00] VITALS: BP 149/92
[2017-05-08] MEDS ORDERED: IOHEXOL 300 MG/ML 75 ML VIAL IV ONE (15:00)
[2017-05-08] MEDS ORDERED: IOHEXOL 240 MG/ML 50ML VIAL. PO ONE (15:00)
[2017-05-08] MEDS ORDERED: CONTRAST GIVEN MC PRN (15:15)
--- NOTE | 2017-05-08 16:37 | PDOC ---
CARDIO Progress Notes Date and Time Date of Service 05/08/17 Time of Evaluation 1315 Subjective Subjective: No Chest Pain, No shortness of breath, No Palpitations, Other (c/o nausea/vomiting ) Vitals Vitals Vital Signs Date Time Temp Pulse Resp B/P (MAP) Pulse Ox O2 Delivery O2 Flow Rate FiO2 05/08/17 15:00 98.7 53 18 149/92 (111) 94 Room Air 98.7 Weight Weight [ ] Input and Output Intake and Output Intake and Output 05/08/17 07:00 Intake Total 300 ml Output Total 2 ml Balance 298 ml Intake Oral 300 ml Output Urine Total 2 ml Laboratory Labs Laboratory Tests Test 05/08/17 04:45 White Blood Count 8.3 x10^3/uL (4.0-11.0) Red Blood Count 4.48 x10^6/uL (4.30-5.70) Hemoglobin 14.5 g/dL (13.0-17.5) Hematocrit 40.7 % (39.0-53.0) Mean Corpuscular Volume 91 fL (79-100) Mean Corpuscular Hemoglobin 32 pg (25-35) Mean Corpuscular Hemoglobin Concent 36 g/dL (31-37) Red Cell Distribution Width 14.0 % (11.5-14.5) Platelet Count 195 x10^3/uL (140-400) Neutrophils (%) (Auto) 73 % (31-73) Lymphocytes (%) (Auto) 21 % (24-48) Monocytes (%) (Auto) 4 % (0-9) Eosinophils (%) (Auto) 1 % (0-3) Basophils (%) (Auto) 0 % (0-3) Neutrophils # (Auto) 6.1 x10^3uL (1.8-7.7) Lymphocytes # (Auto) 1.7 x10^3/uL (1.0-4.8) Monocytes # (Auto) 0.4 x10^3/uL (0.0-1.1) Eosinophils # (Auto) 0.1 x10^3/uL (0.0-0.7) Basophils # (Auto) 0.0 x10^3/uL (0.0-0.2) Sodium Level 142 mmol/L (136-145) Potassium Level 4.0 mmol/L (3.5-5.1) Chloride Level 107 mmol/L (98-107) Carbon Dioxide Level 26 mmol/L (21-32) Anion Gap 9 (6-14) Blood Urea Nitrogen 11 mg/dL (8-26) Creatinine 0.9 mg/dL (0.7-1.3) Estimated GFR (Cockcroft-Gault) 80.8 Glucose Level 85 mg/dL (70-99) Calcium Level 8.3 mg/dL (8.5-10.1) Physical Exam HEENT: Neck Supple W Full Motion Chest: Symmetric LUNGS: Clear to Auscultation Heart: S1S2, RRR, no murmurs Abdomen: Soft N/T Extremities: 2+ Dorsalis Pedis, No Edema, No Calf Tenderness Neurology: alert, oriented, follow commands Assessment Assessment 1. Chest pain, atypical. trop negative. EKG without acute changes 2. Dyspnea; NT Pro BNP normal. CXR without vascular congestion. Not evidence of acute CHF 3. Hypertension; now controlled 4. Sinus bradycardia. asymptomatic. No significant bradyarrhythmias/pauses noted on tele 5. GERD; per GI 6. Tobaccoism Recommendations Supportive care. MPI underway today; if no evidence of ischemia, may discharge from a CV standpoint NIDHI PARSON APRN May 08, 2017 16:37
--- NOTE | 2017-05-08 17:08 | RAD ---
Acute abdomen series with chest, 3 views, 05/08/2017: History: Nausea and vomiting, upper abdominal and chest pain Gas is present in large and small bowel in a nonspecific pattern. No free air is seen in the abdomen. There is no evidence of organomegaly. Moderate multilevel degenerative change is present in the spine. The heart size is normal. There is tortuosity of the thoracic aorta. There are mild streaky right basilar opacities. A calcified granuloma is present in the left base. The upper lung medrano are clear. There is no evidence of pleural fluid. IMPRESSION: 1. No acute abdominal abnormality is detected. 2. Mild streaky right basilar atelectasis/infiltrate.
--- NOTE | 2017-05-08 17:08 | RAD ---
CT of the abdomen and pelvis with contrast, 05/08/2017: History: Abdominal pain, nausea and vomiting Multidetector CT imaging was performed following oral and IV administration of contrast. There is mild streaky atelectasis/infiltrate posteriorly in the lung bases, more so on the right. No pleural fluid is evident. There is no evidence of a hepatic mass or bile duct dilatation. The gallbladder is unremarkable. No pancreatic abnormality is seen. The spleen is of normal size. There is a tiny cyst in the anteromedial aspect of the right kidney. The kidneys show no evidence of obstruction. No adrenal abnormality is seen. There is mild aortoiliac calcific plaquing without evidence of aneurysm. No abdominal or pelvic adenopathy is seen. There are a few scattered diverticula in the colon. No paracolic inflammatory process is seen. The appendix is not clearly visualized. No dilated appendix or pericecal inflammatory process is identified. No free air is evident in the abdomen. There appears to be a trace amount of free fluid in the deep pelvis. Moderate multilevel degenerative changes are present in the lumbar spine. There is moderate chronic spondylolisthesis at L5-S1 with fusion of those vertebral bodies. A small sclerotic focus in the left side of the sacrum is probably a bone island. IMPRESSION: 1. Mild colonic diverticulosis. 2. Trace amount of free fluid in the deep pelvis. 3. Mild bibasilar atelectasis. PQRS Compliance Statement: One or more of the following individualized dose reduction techniques were utilized for this examination: 1. Automated exposure control 2. Adjustment of the mA and/or kV according to patient size 3. Use of iterative reconstruction technique
--- NOTE | 2017-05-08 17:27 | RAD ---
APPROVED REPORT Test Type: Pharmacological Stress Nurse/Tech: Riana Stearns R.N. Test Indications: Chest pain. Cardiac History: HTN Medications: SEE EMR Medical History: Former smoker, quit 1 month ago Resting ECG: SR Resting Heart Rate: 52 bpm Resting Blood Pressure: 148/82mmHg Pretest Chest Pain: None Nurse/Tech Notes S1S2, lungs diminished througjhout, denies chest pain, SOA or dizziness. Pt had N/V FAMILY SPECIALIST in nuclear ar dicine, given zofran but is still c/o nausea. Consent: The procedure was explained to the patient in lay terms. Informed consent was witnessed. Anish saha was entered into [employer]. History and Stress Test performed by Riana Stearns R.N. Pharm. Details Pharmacologic stress testing was performed using 0.4mg per 5ml of regadenoson given intravenously ove r 7-10 seconds. Stress Symptoms Nausea, vomiting. Denied chest pain. POST EXERCISE Reason for Termination: Infusion complete Max HR: 94 bpm Max Blood Pressure: 184/106mmHg Blood Pressure response to exercise: Normal blood pressure response during stress. Heart Rate response to exercise: Normal Chest Pain: No. Arrhythmia: No. ST Change: No. INTERPRETATION Stress EKG Conclusion: Resting EKG shows a sinus rhythm. The stress EKG shows no significant changes from baseline. No EKG evidence of stress-induced ischemia. Imaging Protocol IMAGE PROTOCOL: Rest Tc-99m/stress Tc-99m 1 day Rest: Stress: Viability: Radiopharm.Tc99m BkpzetniyCk18f Sestamibi Oyvf60cAd 32mCi Duration 15min. 10min. Img Date 05/08/2017 05/08/2017 Inj-Img Whri60fdr. 60min. Rest Admin Site:IV - Right AntecubitalAdministrator:DARLENE Lal Stress Admin Site: IV - Right AntecubitalAdministrator: JENNI Connolly, ARRT (R)(N) STRESS DATA End Diast. Vol.79.0mlAv. Heart Rate58.0bpm End Syst. Vol.25.0mlCO Index BSA0.0L/min Myocardial Jjmj059.0gEject. Vyjcciob86.0% Stress Rates Pk. Fill Rate2.16EDV/secLVtime Pk. Fill 327.08msec Pk. Empty Rate3.47ESV/secLVtime Pk. Vfajb231.47msec 1/3 Pk. Fill0.81EDV/sec Stress Scores Regional WT2.00Summed WT8.00 Regional WM0.00Summed WM1.00 LV Perfusion The stress scans show no significant defects. The rest scans show no significant defects. Nuclear imaging shows no reversible ischemia or infarct. Wall Motion Left ventricular systolic function is normal with an ejection fraction of 68%. LV Perf. Quant 17 Seg. SSS4.00 17 Seg. SRS8.00 17 Seg. SDS0.00 Stress Defect Extent (% LAD)0.00Rest Defect Extent (% LAD)15.60Rev. Defect Extent (% LAD)0.00 Stress Defect Extent (% LCX) 31.30Rest Defect Extent (% LCX)35.00Rev. Defect Extent (% LCX)0.00 Stress Defect Extent (% RCA)0.00Rest Defect Extent (% RCA)0.00Rev. Defect Extent (% RCA)0.00 Stress Defect Extent (% VALENTINE)5.40Rest Defect Extent (% VALENTINE)13.00Rev. Defect Extent (% VALENTINE)0.00 Conclusion 1. No EKG evidence of stress-induced ischemia. 2. Nuclear imaging shows no reversible ischemia or infarct. 3. Normal left ventricular systolic function with an ejection fraction of 60%. 4. Low risk Lexiscan nuclear stress test.
[2017-05-08] MEDS: LISINOPRIL 40 MG TABLET. PO SCH (18:31)
[2017-05-08 19:00] VITALS: BP 144/107
[2017-05-08] MEDS: PROCHLORPERAZINE 10 MG/2 ML VIAL. IV PRN (21:19)
[2017-05-08 23:00] VITALS: BP 148/99
[2017-05-09] MEDS: IV 1/2 NORMAL SALINE 1,000 ML IV SCH ×2 (01:50→17:06)
[2017-05-09] MEDS: PROCHLORPERAZINE 10 MG/2 ML VIAL. IV PRN (02:56)
[2017-05-09 03:00] VITALS: BP 151/100
[2017-05-09 07:00] VITALS: BP 146/87
--- NOTE | 2017-05-09 08:58 | PDOC ---
CARDIO Progress Notes Date and Time Date of Service 05/09/2017 Time of Evaluation 0840 Subjective Subjective: No Chest Pain, No Palpitations, No Dizziness, Other (still has SOA and MILLS. ) Vitals Vitals Vital Signs Date Time Temp Pulse Resp B/P (MAP) Pulse Ox O2 Delivery O2 Flow Rate FiO2 05/09/17 07:00 98.9 63 16 146/87 (106) 99 Room Air 98.9 Weight Weight [ ] Input and Output Intake and Output Intake and Output 05/09/17 07:00 Intake Total 1360 ml Output Total 1350 ml Balance 10 ml Intake Oral 1360 ml Output Urine Total 1350 ml # Voids 2 Physical Exam HEENT: Neck Supple W Full Motion Chest: Symmetric LUNGS: Other (faint basilar crackles) Heart: S1S2, RRR (SR, no significant ectopies), no murmurs Abdomen: Soft N/T Extremities: No Edema, No Calf Tenderness Neurology: alert, oriented, follow commands Assessment Assessment 1. Atypical CP: no further recurrence 2. Dyspnea: no CHF. Persistent and with MILLS. 3. Hypertension: controlled 4. Sinus bradycardia. asymptomatic: Presently SR 5. Tobaccoism Recommendations 1, MPI unremarkable for defects. TTE today, if no significant changes then may need to consult pulmonary 2. Recommend CT chest defer to PCP 3. TSH. EDSI ROSALES APRN May 09, 2017 08:58
[2017-05-09] MEDS: FAMOTIDINE 20 MG/2 ML VIAL IVP SCH ×2 (09:12→20:27)
[2017-05-09] MEDS: LISINOPRIL 40 MG TABLET. PO SCH (09:14)
[2017-05-09 11:00] VITALS: BP 152/80
--- NOTE | 2017-05-09 12:44 | PDOC ---
GI PROGRESS NOTES Date Date/Time DATE: 05/09/17 TIME: 12:42 Objective Vitals Vital Signs Date Time Temp Pulse Resp B/P (MAP) Pulse Ox O2 Delivery O2 Flow Rate FiO2 05/09/17 11:00 99.2 69 14 152/80 (104) 92 Room Air 99.2 05/09/17 09:14 63 146/87 05/09/17 08:00 Room Air 05/09/17 07:00 98.9 63 16 146/87 (106) 99 Room Air 98.9 05/09/17 03:00 97.5 66 18 151/100 (117) 93 Room Air 97.5 05/08/17 23:00 97.5 60 18 148/99 (115) 95 Room Air 97.5 05/08/17 20:00 Room Air 05/08/17 19:00 98.0 60 16 144/107 (119) 97 Room Air 98.0 05/08/17 18:31 53 149/92 05/08/17 15:00 98.7 53 18 149/92 (111) 94 Room Air 98.7 Labs Labs Laboratory Tests Test 05/09/17 10:23 Thyroid Stimulating Hormone (TSH) 0.336 uIU/mL (0.358-3.74) Plan Plan Patient seen and evaluated. See consult. Tolerating diet and feels well. OK to d/c from GI point of view once cleared by cardiology. We will set up EGD and colonoscopy later as outpt. Signing off DAVID FIORE MD May 09, 2017 12:44
--- NOTE | 2017-05-09 13:19 | PDOC ---
PROGRESS NOTES Chief Complaint Chief Complaint 1. RT sided CP 2 persistent emesis 3. HTN 4. SMOKER (1/2 ppday) History of Present Illness History of Present Illness Emesis has resolved Looks good today CT abd just shows atelectasis and diverticulosis SOme SOA in earlier report but none relayed to me Donaldo teague PUlmo consult Pt does smoke significantly 1/2 ppday for many yrs, not interested or is unable to quit PLAn: Echo ordered per cards OP c scope per gI IF echo ok, dc home with family Dw multiple fam members at bedside CAn do OP pulmo appt - PFTs Vitals Vitals Vital Signs Date Time Temp Pulse Resp B/P (MAP) Pulse Ox O2 Delivery O2 Flow Rate FiO2 05/09/17 11:00 99.2 69 14 152/80 (104) 92 Room Air 99.2 Physical Exam General: Alert, Oriented X3, Cooperative, No acute distress Heart: Regular rate, Normal S1, Normal S2, No murmurs Abdomen: Soft, No tenderness Extremities: No edema, Normal pulses Skin: No significant lesion Labs LABS Laboratory Tests Test 05/09/17 10:23 Thyroid Stimulating Hormone (TSH) 0.336 uIU/mL (0.358-3.74) Review of Systems Review of Systems denies 14 pt reviewed Assessment and Plan Assessmemt and Plan Problems Medical Problems: (1) Accelerated hypertension Status: Acute (2) Chest pain Status: Acute (3) Headache Status: Acute Problems: Comment Review of Relevant I have reviewed the following items coco (where applicable) has been applied. Labs Laboratory Tests Test 05/08/17 04:45 05/09/17 10:23 White Blood Count 8.3 x10^3/uL (4.0-11.0) Red Blood Count 4.48 x10^6/uL (4.30-5.70) Hemoglobin 14.5 g/dL (13.0-17.5) Hematocrit 40.7 % (39.0-53.0) Mean Corpuscular Volume 91 fL (79-100) Mean Corpuscular Hemoglobin 32 pg (25-35) Mean Corpuscular Hemoglobin Concent 36 g/dL (31-37) Red Cell Distribution Width 14.0 % (11.5-14.5) Platelet Count 195 x10^3/uL (140-400) Neutrophils (%) (Auto) 73 % (31-73) Lymphocytes (%) (Auto) 21 % (24-48) Monocytes (%) (Auto) 4 % (0-9) Eosinophils (%) (Auto) 1 % (0-3) Basophils (%) (Auto) 0 % (0-3) Neutrophils # (Auto) 6.1 x10^3uL (1.8-7.7) Lymphocytes # (Auto) 1.7 x10^3/uL (1.0-4.8) Monocytes # (Auto) 0.4 x10^3/uL (0.0-1.1) Eosinophils # (Auto) 0.1 x10^3/uL (0.0-0.7) Basophils # (Auto) 0.0 x10^3/uL (0.0-0.2) Sodium Level 142 mmol/L (136-145) Potassium Level 4.0 mmol/L (3.5-5.1) Chloride Level 107 mmol/L (98-107) Carbon Dioxide Level 26 mmol/L (21-32) Anion Gap 9 (6-14) Blood Urea Nitrogen 11 mg/dL (8-26) Creatinine 0.9 mg/dL (0.7-1.3) Estimated GFR (Cockcroft-Gault) 80.8 Glucose Level 85 mg/dL (70-99) Calcium Level 8.3 mg/dL (8.5-10.1) Troponin I Quantitative < 0.017 ng/mL (0.000-0.055) Thyroid Stimulating Hormone (TSH) 0.336 uIU/mL (0.358-3.74) Laboratory Tests Test 05/09/17 10:23 Thyroid Stimulating Hormone (TSH) 0.336 uIU/mL (0.358-3.74) Medications Current Medications Clonidine HCl (Catapres) 0.2 mg 1X ONCE PO Last administered on 05/07/17 08: 20; Start 05/07/17 at 08:15; Stop 05/07/17 at 08:16; Status DC Clonidine HCl (Catapres) 0.2 mg 1X ONCE PO ; Start 05/07/17 at 09:15; Stop at 09:16; Status DC Fentanyl Citrate (Fentanyl 2ml Vial) 50 mcg 1X ONCE IV Last administered on 09:16; Start 05/07/17 at 09:15; Stop 05/07/17 at 09:16; Status DC Ondansetron HCl (Zofran) 4 mg 1X ONCE IV Last administered on 05/07/17 09:12 ; Start 05/07/17 at 09:15; Stop 05/07/17 at 09:16; Status DC Lisinopril (Prinivil) 40 mg 1X ONCE PO Last administered on 05/07/17 10:43; Start 05/07/17 at 10:00; Stop 05/07/17 at 10:01; Status DC Acetaminophen (Tylenol) 1,000 mg 1X ONCE PO Last administered on 05/07/17 10: 42; Start 05/07/17 at 10:15; Stop 05/07/17 at 10:16; Status DC Aspirin (Children'S Aspirin) 324 mg 1X ONCE PO Last administered on 05/07/17 12:10; Start 05/07/17 at 11:15; Stop 05/07/17 at 11:16; Status DC Morphine Sulfate 2 mg PRN Q2HR PRN IV PAIN Last administered on 05/08/17 07:32 ; Start 05/07/17 at 16:00 Ondansetron HCl (Zofran) 4 mg PRN Q6HRS PRN IV NAUSEA/VOMITING Last administered on 05/08/17 18:38; Start 05/08/17 at 01:30 Lisinopril (Prinivil) 40 mg DAILY PO Last administered on 05/09/17 09:14; Start 05/08/17 at 09:00 Regadenoson (Lexiscan) 0.4 mg 1X ONCE IV Last administered on 05/08/17 09:38 ; Start 05/08/17 at 09:00; Stop 05/08/17 at 09:01; Status DC Prochlorperazine Edisylate (Compazine) 10 mg 1X ONCE IV Last administered on 12:30; Start 05/08/17 at 12:15; Stop 05/08/17 at 12:16; Status DC Prochlorperazine Edisylate (Compazine) 10 mg PRN Q6HRS PRN IV NAUSEA/VOMITING Last administered on 05/09/17 02:56; Start 05/08/17 at 12:30 Famotidine (Pepcid) 20 mg BID IVP Last administered on 05/09/17 09:12; Start 05/08/17 at 13:00 Multi-Ingredient Mouthwash/Gargle (Gi Cocktail Single Dose) 15 ml 1X ONCE SWSW ; Start 05/08/17 at 12:30; Stop 05/08/17 at 12:31; Status Cancel Sodium Chloride 1,000 ml @ 75 mls/hr [id number] IV Last administered on 01:50; Start 05/08/17 at 12:30 Promethazine HCl 12.5 mg/Sodium Chloride 50.5 ml @ 151.5 mls/ hr PRN Q6HRS PRN IV NAUSEA/VOMITING; Start 05/08/17 at 12:30 Iohexol (Omnipaque 300 Mg/ml) 75 ml 1X ONCE IV Last administered on 05/08/17 16:31; Start 05/08/17 at 15:00; Stop 05/08/17 at 15:06; Status DC Iohexol (Omnipaque 240 Mg/ml) 50 ml 1X ONCE PO Last administered on 05/08/17 15:00; Start 05/08/17 at 15:00; Stop 05/08/17 at 15:06; Status DC Info (Do NOT chart on this entry -- for MONITORING) 1 each PRN DAILY PRN MC SEE COMMENTS; Start 05/08/17 at 15:15; Stop 05/10/17 at 15:14 Active Scripts Active Reported Lisinopril 40 Mg Tablet 1 Tab PO DAILY Lisinopril 40 Mg Tablet 1 Tab PO DAILY Vitals/I & O Vital Sign - Last 24 Hours 05/08/17 05/08/17 05/08/17 05/08/17 15:00 18:31 19:00 20:00 Temp 98.7 98.0 98.7 98.0 Pulse 53 53 60 Resp 18 16 B/P (MAP) 149/92 (111) 149/92 144/107 (119) Pulse Ox 94 97 O2 Delivery Room Air Room Air Room Air 05/08/17 05/09/17 05/09/17 05/09/17 23:00 03:00 07:00 08:00 Temp 97.5 97.5 98.9 97.5 97.5 98.9 Pulse 60 66 63 Resp 18 18 16 B/P (MAP) 148/99 (115) 151/100 (117) 146/87 (106) Pulse Ox 95 93 99 O2 Delivery Room Air Room Air Room Air Room Air 05/09/17 05/09/17 09:14 11:00 Temp 99.2 99.2 Pulse 63 69 Resp 14 B/P (MAP) 146/87 152/80 (104) Pulse Ox 92 O2 Delivery Room Air Intake and Output 05/08/17 05/08/17 05/09/17 15:00 23:00 07:00 Intake Total 300 ml 1060 ml Output Total 150 ml 1200 ml Balance 150 ml -140 ml GUERITA GARCIA MD May 09, 2017 13:19
--- NOTE | 2017-05-09 14:11 | PDOC3 ---
Discharge Summary Visit Information Date of Admission: May 07, 2017 Date of Discharge: May 09, 2017 Admitting Diagnosis Comment: 1. RT sided CP 2 persistent emesis 3. HTN 4. SMOKER (1/2 ppday) Final Diagnosis Problems Medical Problems: (1) Accelerated hypertension Status: Acute (2) Chest pain Status: Acute (3) Headache Status: Acute Brief Hospital Course Allergies Allergies Coded Allergies Type Severity Reaction Last Updated Verified No Known Drug Allergies 05/07/17 No Vital Signs Vital Signs Date Time Temp Pulse Resp B/P (MAP) Pulse Ox O2 Delivery O2 Flow Rate FiO2 05/09/17 11:00 99.2 69 14 152/80 (104) 92 Room Air 99.2 Lab Results Laboratory Tests Test 05/08/17 04:45 05/09/17 10:23 White Blood Count 8.3 x10^3/uL (4.0-11.0) Red Blood Count 4.48 x10^6/uL (4.30-5.70) Hemoglobin 14.5 g/dL (13.0-17.5) Hematocrit 40.7 % (39.0-53.0) Mean Corpuscular Volume 91 fL (79-100) Mean Corpuscular Hemoglobin 32 pg (25-35) Mean Corpuscular Hemoglobin Concent 36 g/dL (31-37) Red Cell Distribution Width 14.0 % (11.5-14.5) Platelet Count 195 x10^3/uL (140-400) Neutrophils (%) (Auto) 73 % (31-73) Lymphocytes (%) (Auto) 21 % (24-48) Monocytes (%) (Auto) 4 % (0-9) Eosinophils (%) (Auto) 1 % (0-3) Basophils (%) (Auto) 0 % (0-3) Neutrophils # (Auto) 6.1 x10^3uL (1.8-7.7) Lymphocytes # (Auto) 1.7 x10^3/uL (1.0-4.8) Monocytes # (Auto) 0.4 x10^3/uL (0.0-1.1) Eosinophils # (Auto) 0.1 x10^3/uL (0.0-0.7) Basophils # (Auto) 0.0 x10^3/uL (0.0-0.2) Sodium Level 142 mmol/L (136-145) Potassium Level 4.0 mmol/L (3.5-5.1) Chloride Level 107 mmol/L (98-107) Carbon Dioxide Level 26 mmol/L (21-32) Anion Gap 9 (6-14) Blood Urea Nitrogen 11 mg/dL (8-26) Creatinine 0.9 mg/dL (0.7-1.3) Estimated GFR (Cockcroft-Gault) 80.8 Glucose Level 85 mg/dL (70-99) Calcium Level 8.3 mg/dL (8.5-10.1) Troponin I Quantitative < 0.017 ng/mL (0.000-0.055) Thyroid Stimulating Hormone (TSH) 0.336 uIU/mL (0.358-3.74) Laboratory Tests Test 05/09/17 10:23 Thyroid Stimulating Hormone (TSH) 0.336 uIU/mL (0.358-3.74) Brief Hospital Course Mr. Vilelgas is a 81 old male, SP, admitted for CP, BUt what was remarkable was persistent emesis x 2 days, Acute abd series neg for obstruction , I did consult gI but by next day GI sxs have resolved,. CArds doing echo, If neg, then home later Dw multiple family members at bedside Pt seen and examined 2 notes Advised stop smoking Discharge Information Condition at Discharge: Improved, Stable Disposition/Orders: D/C to Home Scheduled Lisinopril (Lisinopril), 1 TAB PO DAILY, (Reported) Lisinopril (Lisinopril), 1 TAB PO DAILY, (Reported) GUERITA GARCIA MD May 09, 2017 14:11
[2017-05-09 15:00] VITALS: BP 140/78
[2017-05-09] MEDS ORDERED: CONTRAST GIVEN MC PRN (17:00)
[2017-05-09] MEDS ORDERED: IOHEXOL 300 MG/ML 75 ML VIAL IV ONE (17:00)
[2017-05-09 19:59] VITALS: BP 167/99
[2017-05-09 23:50] VITALS: BP 147/93
[2017-05-10 03:59] VITALS: BP 134/85
[2017-05-10 07:15] VITALS: BP 163/104
[2017-05-10] MEDS: LISINOPRIL 40 MG TABLET. PO SCH (08:43)
[2017-05-10] MEDS: FAMOTIDINE 20 MG/2 ML VIAL IVP SCH (08:43)
[2017-05-10] MEDS: IV 1/2 NORMAL SALINE 1,000 ML IV SCH (08:45)
--- NOTE | 2017-05-10 08:54 | CARD ---
APPROVED REPORT EXAM: Two-dimensional and M-mode echocardiogram with Doppler and color Doppler. Other Information Quality : AverageHR: 65bpm INDICATION Dyspnea 2D DIMENSIONS Left Atrium(2D)3.7 (1.6-4.0cm)IVSd1.2 (0.7-1.1cm) Aortic Root(2D)3.0 (2.0-3.7cm)LVDd4.2 (3.9-5.9cm) LVOT Diameter2.2 (1.8-2.4cm)PWd1.2 (0.7-1.1cm) LVDs2.5 (2.5-4.0cm)FS (%) 37.0 % M-Mode DIMENSIONS Aortic Cusp Exc2.18 (1.5-2.0cm) Aortic Valve AoV Peak Jim.123.6cm/sAoV VTI24.9cm AO Peak GR.6.1mmHgLVOT Peak Jim.115.0cm/s LVOT VTI 24.00cmAO Mean GR.3mmHg BETTY (VTI)5.04jt9NE P 1/2 [id number] TDI Lateral E' P. V6.76cm/sMedial E' P. V8.63cm/s Pulmonary Valve PV Peak Xhcghmik061.1cm/s Tricuspid Valve TR P. Bvmgkdtr144rz/sTR Peak Gr.15mmHg LEFT VENTRICLE The left ventricle is normal size. There is borderline concentric left ventricular hypertrophy. The l eft ventricular systolic function is normal and the ejection fraction is within normal range. Left ve ntricular ejection fraction is 55-60%. There is normal LV segmental wall motion. No left ventricle th rombus noted on this study. There is no ventricular septal defect visualized. There is no left ventri cular aneurysm. There is no mass noted in the left ventricle. RIGHT VENTRICLE The right ventricle is normal size. There is normal right ventricular wall thickness. The right ventr icular systolic function is normal. ATRIA The left atrium size is normal. The right atrium size is normal. The interatrial septum is intact wit h no evidence for an atrial septal defect or patent foramen ovale as noted on 2-D or Doppler imaging. AORTIC VALVE The aortic valve is normal in structure and function. Doppler and Color Flow revealed mild aortic reg urgitation. There is no significant aortic valvular stenosis. There is no aortic valvular vegetation. MITRAL VALVE The mitral valve is normal in structure and function. There is no evidence of mitral valve prolapse. There is no mitral valve stenosis. Doppler and Color-flow revealed trace mitral regurgitation. TRICUSPID VALVE The tricuspid valve is normal in structure and function. Doppler and Color Flow revealed trace tricus pid regurgitation. There is no tricuspid valve prolapse or vegetation. There is no tricuspid valve st enosis. PULMONIC VALVE The pulmonary valve is normal in structure and function. Doppler and Color Flow revealed trace pulmon ic valvular regurgitation. There is no pulmonic valvular stenosis. GREAT VESSELS The aortic root is normal in size. The ascending aorta is normal in size. The IVC is normal in size a nd collapses >50% with inspiration. PERICARDIAL EFFUSION There is no pleural effusion. There is no evidence of significant pericardial effusion. Critical Notification Critical Value: No <Conclusion> The left ventricle is normal size. The left ventricular systolic function is normal and the ejection fraction is within normal range. Left ventricular ejection fraction is 55-60%. There is borderline concentric left ventricular hypertrophy. There is no significant aortic valvular stenosis. Doppler and Color Flow revealed mild aortic regurgitation. Doppler and Color-flow revealed trace mitral regurgitation. Doppler and Color Flow revealed trace tricuspid regurgitation. There is no evidence of significant pericardial effusion.
--- NOTE | 2017-05-10 09:38 | RAD ---
CT of the chest with contrast. History: Chest pain x1 week CT scan of the chest was done using 75 mL Isovue 300 contrast. Thyroid is homogeneous. There is no mediastinal adenopathy or pleural effusion. Visualized portions the liver and spleen are normal. Adrenal glands are normal. There is a small hiatus hernia. There is mild atelectasis in the lung bases. There are no other infiltrates. There is a granuloma on the left. There is a 5 mm noncalcified nodule on image #35 of series 2 in the right middle lobe. Fleischner Society guidelines would recommend an optional one year follow-up for high risk individuals. The thoracic aorta is prominent, the descending aorta measures 4.2 cm. The aortic arch measures 3.9 cm. The proximal descending aorta measures 3.9 cm. There is no aortic dissection. The origins of the great vessels are widely patent. Impression: 1. Small right pulmonary nodule. 2. Atelectasis in the lung bases. 3. Enlarged thoracic aorta without an acute dissection. One or more of the following individualized dose reduction techniques were utilized for this examination: 1. Automated exposure control 2. Adjustment of the mA and/or kV according to patient size 3. Use of iterative reconstruction technique
[2017-05-10 10:36] VITALS: BP 155/98
[2017-05-10] MEDS ORDERED: ACETAMINOPHEN 500 MG TABLET PO PRN (11:00)
--- NOTE | 2017-05-10 13:30 | PDOC ---
Provider Note Provider Note Pt did not go home yesterday as echo was not read yet Echo results noted. NO more emesis COunseled heavy about his 10cig per day hx Family at bedisde NO new meds Pt seen and examined Dc summ done - yesterday GUERITA GARCIA MD May 10, 2017 13:30
== END 2017-05-10 14:34 | disposition home or self-care (01) | DRG 392 ==
LOC: ER 07:27 → 6 SOUTH 10:00
PROVIDERS: ADMIT Internal Medicine; ATTEND Internal Medicine
DX: K21.9 Gastro-esophageal reflux disease without esophagitis (principal); R07.89 Other chest pain; F17.210 Nicotine dependence, cigarettes, uncomplicated; I10 Essential (primary) hypertension; M19.90 Unspecified osteoarthritis, unspecified site; R00.1 Bradycardia, unspecified; R11.2 Nausea with vomiting, unspecified; K57.90 Diverticulosis of intestine, part unspecified, without perforation or abscess without bleeding; Z90.49 Acquired absence of other specified parts of digestive tract
CPT/HCPCS: 36415; 70450; 71010; 71260; 74022; 74177; 78452; 80048; 80053; 81001; 83690; 83880; 84443; 84484; 85027; 93005; 93017; 93306; 96374; 96375; 96376; A9500; J0780; J2270; J2405; J2785; J3010; Q9966; Q9967; S0028; 99285-25